=== PATIENT | male | born 1995 | race Hispanic/Latino ===

== ENCOUNTER 2020-09-04 23:20 | Emergency (ER) | payer SELFPAY ==
[2020-09-05] MEDS ORDERED: ACETAMINOPHEN-CODEINE 300/30MG TAB ONE (00:08)
[2020-09-05] MEDS ORDERED: PENICILLIN V POTASSIUM 500 MG TABLET ONE (00:08)
[2020-09-05] MEDS ORDERED: KETOROLAC TROMETHAMINE 60 MG/2 ML VIAL ONE (00:08)
== END 2020-09-05 00:28 | disposition home or self-care (01) ==
LOC: EDH 23:20
DX: K02.9 Dental caries, unspecified (principal)
CPT/HCPCS: 96372; 99283; J1885